=== PATIENT | male | born 1970 | race American Indian/Alaskan Native ===

== ENCOUNTER 2021-08-26 17:24 | Emergency (ER) | payer MEDICAID ==
[2021-08-26] MEDS ORDERED: methylPREDNISolone Sod Succinate 125 MG/2 ML INJ ONE (17:33)
[2021-08-26] MEDS ORDERED: LORazepam 2 MG/ML VIAL ONE (17:44)
[2021-08-26] MEDS ORDERED: methylPREDNISolone Sod Succinate 125 MG/2 ML INJ IV ONE (17:49)
[2021-08-26] MEDS ORDERED: LORazepam 2 MG/ML VIAL IV ONE (17:49)
[2021-08-26] MEDS ORDERED: SODIUM CHLORIDE 0.9% 1000 ML 1,000 ML IV ONE ×3 (17:50→19:50)
--- NOTE | 2021-08-26 18:01 | Emergency Department Report ---
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 Patient said he has been having his treatment at [place] but because [place] is [place] far from here that was why the family decided to bring him into the emergency room at [facility]. Patient denies any fever or chills. Patient report that this is his typical flareup. No other modifying or associated factors reported. - Related Data Allergies Allergy/AdvReac Type Severity Reaction Status Date / Time egg Allergy Severe Shortness Verified 08/26/21 17:39 of Breath influenza A (H5N1) virus Allergy Severe Shortness Verified 08/26/21 17:39 vaccine mo of Breath ED Review of Systems ROS: Stated complaint: DIABETIC/WEAK/CIDP Other details as noted in HPI Comment: All other systems reviewed and negative Respiratory: shortness of breath. denies: cough, wheezing ED Past Medical Hx - Social History Smoking Status: Never Smoker ED Physical Exam - General Limitations: Physical Limitation General appearance: in distress (Due to shortness of breath) - Head Head exam: Present: atraumatic, normal inspection - Eye Eye exam: Present: normal appearance Pupils: Present: normal accommodation - ENT ENT exam: Present: mucous membranes dry - Neck Neck exam: Present: normal inspection. Absent: tenderness - Respiratory Respiratory exam: Present: normal lung sounds bilaterally. Absent: respiratory distress, accessory muscle use - Cardiovascular Cardiovascular Exam: Present: tachycardia - GI/Abdominal GI/Abdominal exam: Present: soft, normal bowel sounds. Absent: distended, tenderness - Extremities Exam Extremities exam: Present: normal inspection. Absent: tenderness - Back Exam Back exam: Present: normal inspection. Absent: tenderness - Neurological Exam Neurological exam: Present: alert, oriented X3 ED Course Vital Signs 08/26/21 08/26/21 08/26/21 17:38 17:41 17:45 Temperature 96.8 F L Pulse Rate 101 H 109 H Respiratory 28 H Rate Blood Pressure 125/105 Blood Pressure 125/105 [Left] O2 Sat by Pulse 100 100 100 Oximetry 08/26/21 08/26/21 08/26/21 18:01 18:15 18:31 Temperature Pulse Rate 103 H 91 H 94 H Respiratory 17 21 22 Rate Blood Pressure 211/116 190/105 188/105 Blood Pressure [Left] O2 Sat by Pulse 96 97 96 Oximetry 08/26/21 08/26/21 08/26/21 18:45 19:01 19:15 Temperature Pulse Rate 96 H 99 H 98 H Respiratory 20 19 20 Rate Blood Pressure 187/103 197/101 188/103 Blood Pressure [Left] O2 Sat by Pulse 96 96 96 Oximetry 08/26/21 19:31 Temperature Pulse Rate 105 H Respiratory 17 Rate Blood Pressure 188/103 Blood Pressure [Left] O2 Sat by Pulse 97 Oximetry - Reevaluation(s) Reevaluation #1: 08/26/21 18:03 here with generalized shakiness with sob that started acutely-- this could be as patient attest to his Guillain [place] Syndrome and seizure could not be ruled out-- so will go ahead and try Solumedrol 125 mg and ativan 2 mg IV x 1-- and order routine labs for any infectious process or electrolytes abnormality-- pt likely may need plasmapheresis/exchange which this hospital is not Required at this point so we have patient transferred to [place] where he got his treatment from. I was called into patient room with likely seizure activities with noted agitation -- so ativan 2mg given with improvement in symptoms including the shakiness. Pt denies any history of seizure though. 08/26/21 19:24 Reevaluation #2: 08/26/21 19: 08/26/21 19:44 Noted with elevated blood sugar at 320 mg/dL with a gap of 26 and bicarb 17 this patient is likely in hyperglycemic state are not worse DKA --we will go ahead and start insulin 5 mg IV and 5 mg subcu and start him on aggressive hydration and insulin drip -- 08/26/21 19:53 Patient started on insulin drip before transfer to [place] for further evaluation and treatment Reevaluation #3: 08/26/21 19:57 Also noted with elevated lactic acid at 4.0 with no known source of infection at this point so we will go ahead and continue aggressive hydration and stat Vanco and Zosyn prophylactically. - Consultations Consultation #1: 06/05/22 19:22 Dr Will neurology at [place] consulted but declined patient that he probably need to be transferred to medicine service because he did not believed he is having GBS flareup. Call made to [place] medicine service. Consultation #2: 08/26/21 19:45 Dr. Adame at [place] consulted who accepted patient for further evaluation and treatment-- ED Medical Decision Making - Lab Data Result diagrams: 08/26/21 18:10 08/26/21 18:10 - EKG Data -: EKG Interpreted by Me EKG shows normal: sinus rhythm Rate: tachycardia - EKG Data 08/26/21 18:11 30 with sinus tachycardia at the rate of 112 bpm with noted prolonged QT interval and this abnormal ECG. Critical Care Time: Yes (75 minutes) Critical care time in (mins) excluding proc time.: 75 Critical care attestation.: If time is entered above; I have spent that time in minutes in the direct care of this critically ill patient, excluding procedure time. This patient brought in with generalized body shakiness, tachycardia with agitation and due to high probability of clinically significant, life threatening deterioration, this patient required my highest level of preparednes s to intervene emergently and I personally spent this critical care time directly and personally managing this patient. This critical care time included obtaining a history; examining this patient; pulse oximetry ; ordering and review of studies ; arranging urgent treatment with development of a management plan ; evaluation of patient's response to treatment ; frequent reassessment ; and, discussion with other providers. This critical care time was performed to assess and manage the high probability of imminent, life-threatening deterioration that could result in multiple organ damage if not done in a timely fashion. Critical Care Time: 75 minutes ED Disposition Clinical Impression: SOB (shortness of breath), Guillain Carey syndrome, Hypertensive crisis, unspecified, Hyperosmolar hyperglycemic state (HHS), Anxiety DKA, type 2 Qualifiers: Diabetes mellitus complication detail: without coma Qualified Code(s): E11.10 - Type 2 diabetes mellitus with ketoacidosis without coma Sepsis Qualifiers: Sepsis type: sepsis due to unspecified organism Sepsis acute organ dysfunction status: unspecified Qualified Code(s): A41.9 - Sepsis, unspecified organism Disposition: 51 HOSPICE/MEDICAL FACILITY Is pt being admited?: No Does the pt Need Aspirin: No Condition: Serious Instructions: Diabetic Ketoacidosis (ED), Diabetes Mellitus Type 2 in Adults (ED), Hypertension (ED) Referrals: PRIMARY CARE, [Primary Care Provider] - 3-5 Days Time of Disposition: 19:46
[2021-08-26 18:30] LABS: Basophils # (Auto) 0.1 K/mm3 (0.0-0.1); Basophils % (Auto) 1.1 % (0.0-1.8); Eosinophils # (Auto) 0.1 K/mm3 (0.0-0.4); Eosinophils % (Auto) 0.4 % (0.0-4.3); Hematocrit 51.1 % (35.5-45.6); Hemoglobin 16.3 gm/dl (11.8-15.2); Lymphocytes # (Auto) 2.2 K/mm3 (1.2-5.4); Lymphocytes % (Auto) 18.4 % (13.4-35.0); Mean Corpuscular HGB Conc 32 % (32-34); Mean Corpuscular Volume 86 fl (84-94); Monocytes # (Auto) 0.8 K/mm3 (0.0-0.8); Monocytes % (Auto) 6.5 % (0.0-7.3); Platelet Count 365 K/mm3 (140-440); Red Blood Count 5.93 M/mm3 (3.65-5.03); Red Cell Distribution Width 15.4 % (13.2-15.2)
[2021-08-26 18:44] LABS: INR 0.83 (0.87-1.13)
[2021-08-26 18:45] LABS: Partial Thromboplastin Time 35.3 Sec. (24.2-36.6)
[2021-08-26 19:29] LABS: Albumin 4.2 g/dL (3.9-5); Calcium 9.8 mg/dL (8.4-10.2)
[2021-08-26] MEDS ORDERED: INSULIN REGULAR, HUMAN 100 UNITS/1 ML IV ONE (19:38)
[2021-08-26] MEDS ORDERED: INSULIN REGULAR, HUMAN 100 UNITS/1 ML SUB-Q ONE (19:38)
[2021-08-26] MEDS ORDERED: VANCOMYCIN/NS 1 GM/250 ML 1 GM/250 ML BAG IV ONE (19:57)
[2021-08-26] MEDS ORDERED: PIPERACILLIN/TAZOBACTAM 3.375 3.375 GM/50 ML BAG IV ONE (19:57)
[2021-08-26] MEDS ORDERED: POTASSIUM CHLORIDE 10 MEQ 10 MEQ/100 ML BAG IV SCH (20:00)
[2021-08-26] MEDS ORDERED: D5W/0.45% NACL/KCL 20 MEQ 20 MEQ/1,000 ML BAG IV SCH (20:00)
[2021-08-26] MEDS ORDERED: INSULIN REGULAR, HUMAN 100 UNITS in SODIUM CHLORIDE 0.9% 99 ML IV SCH (20:00)
[2021-08-27 00:10] LABS: Amphetamine Screen,Urine PRESUMPTIVE NEGATIVE; Benzodiazepines Screen,Urine PRESUMPTIVE NEGATIVE; Cannabinoid Screen,Urine PRESUMPTIVE POSITIVE; Cocaine Screen,Urine PRESUMPTIVE NEGATIVE; Methadone Screen,Urine PRESUMPTIVE NEGATIVE; Opiate Screen,Urine PRESUMPTIVE NEGATIVE
[2021-08-27 00:13] LABS: Bilirubin,Urine NEG (Negative); Blood,Urine SM (Negative); Color,Urine Yellow (Yellow); Protein,Urine >500 mg/dL (Negative); Urobilinogen,Urine < 2.0 mg/dL (<2.0); WBC,Urine < 1.0 /HPF (0.0-6.0)
[2021-08-27 01:53] VITALS: BP 160/102
--- NOTE | 2021-08-28 12:19 | Electrocardiograph Report ---
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
== END 2021-08-27 01:53 | disposition hospice, inpatient (51) ==
LOC: ED 17:24
DX: R06.02 Shortness of breath (principal); G61.0 Guillain-Barre syndrome; I16.9 Hypertensive crisis, unspecified; E11.00 Type 2 diabetes mellitus with hyperosmolarity without nonketotic hyperglycemic-hyperosmolar coma (NKHHC); F41.9 Anxiety disorder, unspecified; A41.9 Sepsis, unspecified organism; Z88.7 Allergy status to serum and vaccine; Z91.012 Allergy to eggs
CPT/HCPCS: 36415; 80053; 80307; 81001; 82140; 82962; 83690; 83735; 83880; 84100; 84443; 85025; 85610; 85730; 93005; 96361; 96365; 96367; 96372; 96375; 99291; 99292; J2060; J2543; J2930; J3370; J3480; J3490; J7030; 80320; Q9967; G0480; J1815